=== PATIENT | female | born 1950 | race Caucasian/White ===

== ENCOUNTER 2021-12-10 09:39 | Observation (INO) ==
[2021-12-10] MEDS ORDERED: Iopamidol - 370 500 ML MLS IVP ONE (10:07)
[2021-12-10 10:42] LABS: Hematocrit 39.5 % (35.3-44.9); Hemoglobin 13.4 g/dL (11.5-15.4); Mean Corpuscular HGB Conc 33.9 g/dL (31.6-35.5); Mean Corpuscular Hemoglobin 30.9 pg (28.0-33.3); Mean Platelet Volume 10.1 fL (9.4-12.4); Platelet Count 159 K/mcL (140-400); Red Blood Count 4.34 M/mcL (3.82-4.97); Red Cell Distribution Width 12.6 % (11.5-14.5); White Blood Count 5.9 K/mcL (4.3-11.1)
[2021-12-10 11:04] LABS: BUN/Creatinine Ratio 16 (6-26); Blood Urea Nitrogen 13 mg/dL (8-23); Calcium 8.8 mg/dL (8.6-10.3); Carbon Dioxide 27 mEq/L (23-29); Chloride 106 mEq/L (98-107); Glucose 124 mg/dL (70-105); Osmolality,Calculated 292 (280-300); Potassium 4.2 mEq/L (3.5-5.1); Sodium 140 mEq/L (136-145); Troponin I < 0.03 ng/mL (< 0.04)
[2021-12-10] MEDS ORDERED: Naloxone 0.4 MG/ML INJ IVP PRN (13:00)
[2021-12-10] MEDS ORDERED: *HR* HYDROcodone/Acet 5/325 mg TABLET PO PRN (14:15)
[2021-12-10] MEDS: *HR* Metoprolol 5 MG/5 ML VIAL IVP PRN (16:03)
[2021-12-10] MEDS ORDERED: traZODone 50 MG TABLET PO SCH (23:30)
[2021-12-11 03:00] LABS: INR 0.9; Prothrombin Time 10.4 Seconds (9.4-12.1)
[2021-12-11 03:22] LABS: Troponin I < 0.03 ng/mL (< 0.04)
[2021-12-11 03:38] LABS: Alanine Aminotransferase 22 Units/L (7-52); Albumin 3.7 g/dL (3.5-5.7); Albumin/Globulin Ratio 1.4 (1.1-2.2); Alkaline Phosphatase 105 Units/L (34-104); Aspartate Amino Transferase 27 Units/L (13-39); BUN/Creatinine Ratio 17 (6-26); Bilirubin,Total 0.4 mg/dL (0.3-1.0); Blood Urea Nitrogen 12 mg/dL (8-23); Calcium 8.8 mg/dL (8.6-10.3); Carbon Dioxide 20 mEq/L (23-29); Chloride 107 mEq/L (98-107); Cholesterol 191 mg/dL (< 200); Globulin 2.6 g/dL (2.4-3.5); Glucose 97 mg/dL (70-105); HDL Cholesterol 38 mg/dL (40-59); LDL Cholesterol,Calculated 78 mg/dL (< 100); Osmolality,Calculated 288 (280-300); Potassium 4.4 mEq/L (3.5-5.1); Sodium 139 mEq/L (136-145); Total Protein 6.3 g/dL (6.4-8.9); Triglycerides 377 mg/dL (< 150)
[2021-12-11] MEDS: *HR* Metoprolol 5 MG/5 ML VIAL IVP PRN (06:52)
[2021-12-11] MEDS ORDERED: Gabapentin 300 MG CAPSULE PO PRN (07:25)
[2021-12-11 08:26] VITALS: O2SAT 94
[2021-12-11] MEDS ORDERED: NON-FORMULARY MEDICATION 1 EACH EACH (Duloxetine Hcl [Cymbalta] 60 MG Capsule.Dr) PO SCH (09:00)
[2021-12-11] MEDS ORDERED: *HR* Rivaroxaban 10 MG TABLET PO SCH (09:00)
[2021-12-11] MEDS ORDERED: OXcarbazepine 150 MG TABLET PO SCH (09:00)
[2021-12-11] MEDS ORDERED: Metoprolol XL (24 HR) Succ 50 MG TAB.ER.24H PO SCH (09:00)
[2021-12-11] MEDS ORDERED: Fluticasone Propionate Nasal 50 MCG/SPRAY BOTTLE NS SCH (09:00)
[2021-12-11] MEDS ORDERED: DilTIAZem CD (24hr) 180 MG CAP.ER.24H PO SCH (09:00)
[2021-12-11 12:47] VITALS: BP 146/86; PULSE 91; TEMP 98.3
== END 2021-12-11 15:57 | disposition home or self-care (01) ==
LOC: EMEROOARM 09:39 → 3BNU 09:39
PROVIDERS: ADMIT Internal Medicine; ATTEND Internal Medicine